=== PATIENT | female | born 1995 | race Caucasian/White ===

== ENCOUNTER 2017-01-02 23:45 | Emergency (ER) | payer MEDICAID ==
[2017-01-03 00:49] LABS: HCG SERUM NEGATIVE (NEGATIVE)
== END 2017-01-03 02:26 | disposition home or self-care (01) ==
LOC: D.ER 23:45
PROVIDERS: Emergency Medicine
DX: Z04.41 Encounter for examination and observation following alleged adult rape (principal)

== ENCOUNTER 2017-01-05 09:15 | Emergency (ER) | payer MEDICAID | END 2017-01-05 10:33 | disposition home or self-care (01) | LOC: D.ER 09:15 | DX: Z30.012 Encounter for prescription of emergency contraception (principal); T76.21XD Adult sexual abuse, suspected, subsequent encounter ==